=== PATIENT | female | born 1965 | race Caucasian/White ===

== ENCOUNTER 2024-05-27 19:51 | Emergency (ER) | payer OTHER ==
[~2024-05-27] VITALS: Ht 172.7 cm; Wt 117.0 kg
[2024-05-27 19:54] VITALS: BP 136/81; PULSE 104; RESP 18; TEMP 98.6; O2SAT 100
[2024-05-27] MEDS ORDERED: TOPUD MT (23:43)
[2024-05-27] MEDS ORDERED: IBUP-1525 MT (23:43)
[2024-05-27] MEDS ORDERED: HYDR-4001 MT (23:43)
[2024-05-27] MEDS ORDERED: IBUPROFEN 800MG TABLET PO ONE (23:45)
[2024-05-27] MEDS ORDERED: ACETAMINOPHEN 325MG TABLET PO ONE (23:45)
== END 2024-05-28 00:10 | disposition home or self-care (01) ==
LOC: ER 19:51
DX: S82.64XA Nondisplaced fracture of lateral malleolus of right fibula, initial encounter for closed fracture (principal); S50.02XA Contusion of left elbow, initial encounter; W01.0XXA Fall on same level from slipping, tripping and stumbling without subsequent striking against object, initial encounter; Y93.89 Activity, other specified; Y92.89 Other specified places as the place of occurrence of the external cause; Y99.8 Other external cause status
CPT/HCPCS: 29505; 73080; 73610; 99284